=== PATIENT | male | born 1970 | race Caucasian/White ===

== ENCOUNTER 2017-08-05 06:55 | Emergency (ER) | payer BC ==
[~2017-08-05] VITALS: Ht 188 cm; Wt 90.9 kg
[2017-08-05] MEDS ORDERED: LOPERAMIDE HCL 2 MG CAPSULE PO ONE (07:45)
[2017-08-05] MEDS ORDERED: CloNIDine HCL 0.2 MG TABLET PO ONE (07:45)
[2017-08-05] MEDS ORDERED: ONDANSETRON HCL 4 MG TABLET PO ONE (07:45)
[2017-08-05] MEDS ORDERED: KETOROLAC TROMETHAMINE 30 MG/ML VIAL IM ONE (07:45)
[2017-08-05 08:42] VITALS: BP 123/75
== END 2017-08-05 09:37 | disposition home or self-care (01) ==
LOC: EMS 06:56
DX: F11.23 Opioid dependence with withdrawal (principal); R11.2 Nausea with vomiting, unspecified; R51 Headache; M79.1 Myalgia; R19.7 Diarrhea, unspecified; R61 Generalized hyperhidrosis; F19.90 Other psychoactive substance use, unspecified, uncomplicated; Z88.0 Allergy status to penicillin
CPT/HCPCS: 96372; 99284; J1885; Q0162

== ENCOUNTER 2018-01-15 15:37 | Emergency (ER) | payer BC, MEDICAID ==
[~2018-01-15] VITALS: Ht 188 cm; Wt 81.8 kg
[2018-01-15 17:12] LABS: EOSINOPHILS % (AUTO) 2.1 % (1.0-6.0); HEMATOCRIT 42.8 % (41-53); HEMOGLOBIN 14.3 g/dL (13.5-17.5); LYMPHOCYTES # (AUTO) 2.5 K/uL (1.0-4.8); LYMPHOCYTES % (AUTO) 28.2 % (22.0-44.0); MEAN CORPUSCULAR HEMOGLOBIN 30.1 pg (26.0-34.0); MEAN CORPUSCULAR HGB CONC 33.5 G/dL (31.0-37.0); MEAN CORPUSCULAR VOLUME 90 fL (80-100); MONOCYTES # (AUTO) 0.6 K/uL (0.1-1.0); NEUTROPHILS # (AUTO) 5.4 K/uL (1.8-7.7); NEUTROPHILS % (AUTO) 61.7 % (40.0-70.0); PLATELET COUNT (AUTO) 241 K/uL (150-450); RED BLOOD CELL COUNT(AUTO) 4.77 MIL/uL (4.50-5.90); RED CELL DISTRIBUTION WIDTH 14.3 % (11.5-14.5)
[2018-01-15 17:23] LABS: ANION GAP 12 mmol/L (8-16); CALCIUM, TOTAL 8.1 mg/dL (8.8-10.5); CARBON DIOXIDE 24 mmol/L (22-29); CHLORIDE 106 mmol/L (98-107); CREATININE 1.05 mg/dL (0.60-1.30); GLOMERULAR FILTR. RATE CALC > 60 mL/min (>60); GLUCOSE,RANDOM 142 mg/dL (70-110); POTASSIUM 3.8 mmol/L (3.5-5.1); SODIUM SERUM 142 mmol/L (136-145); UREA NITROGEN, BLOOD 14 mg/dL (7-18)
[2018-01-15 17:29] LABS: ALANINE AMINOTRANSFERASE 16 U/L (12-78); ALBUMIN 3.2 g/dL (3.4-5.0); ALKALINE PHOSPHATASE 75 U/L (46-116); ASPARTATE AMINOTRANSFERASE 11 U/L (15-37); BILIRUBIN,TOTAL 0.5 mg/dL (0.1-1.0); LIPASE 277 U/L (73-393); TOTAL PROTEIN, SERUM 6.7 g/dL (6.4-8.2)
[2018-01-15] MEDS ORDERED: LORazepam 1 MG TABLET PO ONE (18:00)
[2018-01-15 19:00] VITALS: BP 126/68
== END 2018-01-15 19:06 | disposition home or self-care (01) ==
LOC: EMS 15:38
DX: F11.23 Opioid dependence with withdrawal (principal); R10.84 Generalized abdominal pain; R11.2 Nausea with vomiting, unspecified; F19.90 Other psychoactive substance use, unspecified, uncomplicated; Z88.0 Allergy status to penicillin
CPT/HCPCS: 36415; 80053; 83690; 85025; 99284; G0480

== ENCOUNTER 2018-07-22 12:48 | Emergency (ER) | payer MEDICAID ==
[~2018-07-22] VITALS: Ht 188 cm; Wt 84.1 kg
[2018-07-22] MEDS ORDERED: LORazepam 2 MG/ML VIAL ONE (12:53)
[2018-07-22] MEDS ORDERED: LORazepam 2 MG/ML VIAL IVP ONE (13:00)
[2018-07-22] MEDS ORDERED: SODIUM CHLORIDE 0.9% 1,000 ML IV ONE ×2 (13:00→14:45)
[2018-07-22 13:54] LABS: BASOPHILS % (AUTO) 0.9 % (0.0-2.0); EOSINOPHILS % (AUTO) 1.3 % (1.0-6.0); HEMATOCRIT 43.2 % (41-53); HEMOGLOBIN 14.3 g/dL (13.5-17.5); LYMPHOCYTES # (AUTO) 2.6 K/uL (1.0-4.8); LYMPHOCYTES % (AUTO) 27.5 % (22.0-44.0); MEAN CORPUSCULAR HEMOGLOBIN 28.9 pg (26.0-34.0); MEAN CORPUSCULAR VOLUME 87 fL (80-100); MONOCYTES # (AUTO) 0.8 K/uL (0.1-1.0); MONOCYTES % (AUTO) 8.4 % (2.0-9.0); NEUTROPHILS # (AUTO) 5.9 K/uL (1.8-7.7); NEUTROPHILS % (AUTO) 61.9 % (40.0-70.0); PLATELET COUNT (AUTO) 291 K/uL (150-450); RED BLOOD CELL COUNT(AUTO) 4.94 MIL/uL (4.50-5.90); RED CELL DISTRIBUTION WIDTH 13.2 % (11.5-14.5)
[2018-07-22 14:10] LABS: ANION GAP 12 mmol/L (8-16); CALCIUM, TOTAL 8.8 mg/dL (8.8-10.5); CARBON DIOXIDE 25 mmol/L (22-29); CHLORIDE 107 mmol/L (98-107); CREATININE 1.44 mg/dL (0.60-1.30); GLOMERULAR FILTR. RATE CALC 53 mL/min (>60); GLUCOSE,RANDOM 85 mg/dL (70-110); POTASSIUM 3.5 mmol/L (3.5-5.1); SODIUM SERUM 144 mmol/L (136-145); UREA NITROGEN, BLOOD 21 mg/dL (7-18)
[2018-07-22 14:33] LABS: ALANINE AMINOTRANSFERASE 16 U/L (12-78); ALBUMIN 3.7 g/dL (3.4-5.0); ALKALINE PHOSPHATASE 65 U/L (46-116); ASPARTATE AMINOTRANSFERASE 18 U/L (15-37); BILIRUBIN,TOTAL 1.7 mg/dL (0.1-1.0); CREATINE KINASE, TOTAL ONLY 167 U/L (39-308); TOTAL PROTEIN, SERUM 7.1 g/dL (6.4-8.2)
[2018-07-22 16:01] LABS: AMPHET/METH SCREEN,URINE POSITIVE (NEGATIVE); BARBITURATE SCREEN, URINE NEGATIVE (NEGATIVE); BENZODIAZEPINES SCREEN,URINE NEGATIVE (NEGATIVE); CANNABINOID SCREEN,URINE NEGATIVE (NEGATIVE); COCAINE SCREEN,URINE NEGATIVE (NEGATIVE); METHADONE SCREEN, URINE NEGATIVE (NEGATIVE); OPIATE SCREEN,URINE POSITIVE (NEGATIVE)
[2018-07-22 16:03] LABS: PHENCYCLIDINE SCREEN,URINE NEGATIVE (NEGATIVE)
[2018-07-22 21:35] VITALS: BP 108/67
== END 2018-07-22 21:37 | disposition home or self-care (01) ==
LOC: EMS 12:48
DX: T43.621A Poisoning by amphetamines, accidental (unintentional), initial encounter (principal); F11.10 Opioid abuse, uncomplicated; F17.210 Nicotine dependence, cigarettes, uncomplicated; F19.90 Other psychoactive substance use, unspecified, uncomplicated; Z88.0 Allergy status to penicillin; Y92.89 Other specified places as the place of occurrence of the external cause
CPT/HCPCS: 36415; 51702; 80053; 80307; 82550; 82962; 84484; 85025; 93005; 96374; 99291; 99406; G0480; J2060; J7030

== ENCOUNTER 2018-08-16 20:03 | Emergency (ER) | payer MEDICAID ==
[~2018-08-16] VITALS: Ht 188 cm; Wt 95.5 kg
[2018-08-16 22:03] LABS: BASOPHILS % (AUTO) 1.1 % (0.0-2.0); EOSINOPHILS % (AUTO) 0.4 % (1.0-6.0); HEMATOCRIT 44.5 % (41-53); HEMOGLOBIN 14.9 g/dL (13.5-17.5); LYMPHOCYTES % (AUTO) 13.5 % (22.0-44.0); MEAN CORPUSCULAR HEMOGLOBIN 29.2 pg (26.0-34.0); MEAN CORPUSCULAR HGB CONC 33.6 G/dL (31.0-37.0); MEAN CORPUSCULAR VOLUME 87 fL (80-100); MONOCYTES # (AUTO) 1.7 K/uL (0.1-1.0); MONOCYTES % (AUTO) 11.4 % (2.0-9.0); NEUTROPHILS # (AUTO) 10.7 K/uL (1.8-7.7); NEUTROPHILS % (AUTO) 73.6 % (40.0-70.0); PLATELET COUNT (AUTO) 254 K/uL (150-450); RED BLOOD CELL COUNT(AUTO) 5.12 MIL/uL (4.50-5.90); RED CELL DISTRIBUTION WIDTH 14.1 % (11.5-14.5)
[2018-08-16 22:15] LABS: ANION GAP 8 mmol/L (8-16); CALCIUM, TOTAL 9.5 mg/dL (8.8-10.5); CARBON DIOXIDE 28 mmol/L (22-29); CHLORIDE 104 mmol/L (98-107); CREATININE 2.46 mg/dL (0.60-1.30); GLOMERULAR FILTR. RATE CALC 28 mL/min (>60); GLUCOSE,RANDOM 122 mg/dL (70-110); POTASSIUM 3.9 mmol/L (3.5-5.1); SODIUM SERUM 140 mmol/L (136-145); UREA NITROGEN, BLOOD 17 mg/dL (7-18)
[2018-08-16 22:51] LABS: ALANINE AMINOTRANSFERASE 18 U/L (12-78); ALKALINE PHOSPHATASE 83 U/L (46-116); ASPARTATE AMINOTRANSFERASE 21 U/L (15-37); BILIRUBIN,TOTAL 1.6 mg/dL (0.1-1.0); CREATINE KINASE, TOTAL ONLY 224 U/L (39-308); LIPASE 83 U/L (73-393); TOTAL PROTEIN, SERUM 7.8 g/dL (6.4-8.2)
[2018-08-16 23:50] VITALS: BP 148/82
[2018-08-17] MEDS ORDERED: LORazepam 2 MG TABLET PO ONE (00:15)
== END 2018-08-17 00:19 | disposition home or self-care (01) ==
LOC: EMS 20:04
DX: F11.10 Opioid abuse, uncomplicated (principal); F15.10 Other stimulant abuse, uncomplicated; F41.9 Anxiety disorder, unspecified; N28.9 Disorder of kidney and ureter, unspecified; F17.210 Nicotine dependence, cigarettes, uncomplicated; Z88.0 Allergy status to penicillin
CPT/HCPCS: 36415; 80053; 82550; 83690; 84484; 85025; 99283; G0480